=== PATIENT | male | born 1980 | race Two or more races ===

== ENCOUNTER → 2025-05-13 | Outpatient (CLI) | payer MEDICARE, MEDICAID, SELFPAY ==
--- NOTE | 2025-05-13 13:30 | XR_ITS ---
EXAMINATION: Testicular sonography complete TECHNIQUE: Grayscale sonographic images testes, assessment arterial inflow and venous outflow Doppler spectral analysis color flow analysis Date and time: May 13, 2025, 1436 hours INDICATIONS: Left-sided testicular pain this week. FINDINGS: Right testis 3.3 cm epididymis 14 mm Arterial flow the testicle. No testicular mass Mild hydrocele Left testis 3.7 cm epididymis 19 mm 19 mm 4 mm epididymal cysts and smaller cysts Arterial flow testicle. No testicular mass Mild to moderate hydrocele IMPRESSION: No testicular torsion or testicular mass Multiple benign epididymal cyst on the left Mild right mild to moderate left hydroceles
== END | disposition home or self-care (01) ==
DX: N44.2 Benign cyst of testis (principal); N43.2 Other hydrocele
CPT/HCPCS: 76870